=== PATIENT | female | born 1990 | race African-American/Black ===

== ENCOUNTER 2020-05-25 10:46 | Outpatient (REF) | payer OTHER, SELFPAY | END 2020-05-25 10:47 | disposition home or self-care (01) | LOC: HO.LAB 10:46 | PROVIDERS: PCP Internal Medicine; Visit Provider Internal Medicine | DX: Z20.828 Contact with and (suspected) exposure to other viral communicable diseases (principal) | CPT/HCPCS: U0003 ==

== ENCOUNTER 2020-10-17 12:16 | Outpatient (REF) | payer OTHER, SELFPAY ==
[2020-10-17 13:56] LABS: COVID-19 Test Negative (Negative)
== END 2020-10-17 12:17 | disposition home or self-care (01) ==
LOC: HO.LAB 12:16
PROVIDERS: Visit Provider Internal Medicine
DX: Z20.822 Contact with and (suspected) exposure to COVID-19 (principal)
CPT/HCPCS: 36415; 87635; C9803

== ENCOUNTER 2021-02-20 14:43 | Outpatient (REF) | payer OTHER, SELFPAY ==
[2021-02-21 05:45] LABS: CT PCR NOT DETECTED (Not Detect.); NG PCR NOT DETECTED (Not Detect.)
[2021-02-22 19:16] LABS: HPV mRNA E6/E7 rflx Not Detected (Not Detected)
== END 2021-02-20 14:44 | disposition home or self-care (01) ==
LOC: HO.LAB 14:43
PROVIDERS: PCP Internal Medicine; Visit Provider Advanced Practice Midwife
DX: Z01.419 Encounter for gynecological examination (general) (routine) without abnormal findings (principal); Z11.51 Encounter for screening for human papillomavirus (HPV); Z11.3 Encounter for screening for infections with a predominantly sexual mode of transmission; Z20.2 Contact with and (suspected) exposure to infections with a predominantly sexual mode of transmission; Z72.0 Tobacco use
CPT/HCPCS: 87491; 87591; 87624; 88142

== ENCOUNTER 2021-06-20 09:41 | Emergency (ER) | payer OTHER, SELFPAY ==
[2021-06-20 09:58] VITALS: BP 154/87; PULSE 78; RESP 19; O2SAT 99; BMI 28.3
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
[2021-06-20 14:06] LABS: Appearance Urine HAZY; Color Urine YELLOW; Glucose Urine UA NEG (NEG); Leukocyte Esterase Urine NEG (NEG); Nitrite Urine NEG (NEG); Specific Gravity - Urine 1.025 (1.005-1.025); UACC Culture Trigger NO; Urine Blood TRACE (NEG); Urine Ketones >=80 MG/DL (NEG); Urine Protein NEG (NEG-TRACE)
[2021-06-20 14:09] LABS: UPreg QC Valid YES
[2021-06-20] MEDS: metroNIDAZOLE 500 MG TABLET 2000 MG PO (14:11)
[2021-06-20] MEDS: Azithromycin 500 MG TABLET 1000 MG PO (14:11)
[2021-06-20 14:14] LABS: Squamous Epithelial Cell Urine 4+ /LPF; WBC Urine 0 /HPF (0-4)
[2021-06-20 14:15] LABS: Mucus Urine 4+ /LPF
[2021-06-20] MEDS: cefTRIAXone sodium 500 MG, Lidocaine HCl 1 % MPF 1 ML IM (14:15)
[2021-06-20 14:16] LABS: Urine Pregnancy NEGATIVE (NEGATIVE)
[2021-06-20 15:41] LABS: CT PCR NOT DETECTED (Not Detect.); NG PCR NOT DETECTED (Not Detect.)
== END 2021-06-20 15:29 | disposition home or self-care (01) ==
PROVIDERS: Physician Assistant; Emergency Provider Emergency Medicine; PCP Internal Medicine
DX: T74.21XA Adult sexual abuse, confirmed, initial encounter (principal); Y07.59 Other non-family member, perpetrator of maltreatment and neglect
CPT/HCPCS: 81001; 81025; 87480; 87491; 87510; 87591; 87660; 96372; 99283; 99284; J0696

== ENCOUNTER 2022-05-15 13:01 | Outpatient (REF) | payer OTHER, SELFPAY ==
[2022-05-15 14:46] LABS: HCG Quantitative < 2 mIU/mL
== END 2022-05-15 13:02 | disposition home or self-care (01) ==
LOC: HO.LAB 13:01
PROVIDERS: PCP Internal Medicine; Visit Provider Obstetrics & Gynecology
DX: O20.9 Hemorrhage in early pregnancy, unspecified (principal)
CPT/HCPCS: 36415; 84702

== ENCOUNTER 2022-05-20 15:15 | Outpatient (REF) | payer OTHER, SELFPAY ==
[2022-05-20 16:07] LABS: Influenza A PCR NEGATIVE (Negative); Influenza B PCR NEGATIVE (Negative); Resp Syncy Virus RNA Qual PCR POSITIVE (Negative); SARS COV2 PCR INHOUSE NEGATIVE (Negative)
== END 2022-05-20 15:16 | disposition home or self-care (01) ==
LOC: HO.LAB 15:15
PROVIDERS: PCP Internal Medicine; Visit Provider Internal Medicine
DX: Z20.822 Contact with and (suspected) exposure to COVID-19 (principal); R09.89 Other specified symptoms and signs involving the circulatory and respiratory systems
CPT/HCPCS: 0241U

== ENCOUNTER 2023-03-19 08:50 | Outpatient (AMB) | payer OTHER, SELFPAY ==
[2023-03-19 08:54] VITALS: BP 112/68; BMI 27.5
--- NOTE | 2023-03-19 08:54 | A.OFFVIS_ITS ---
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 No complaints. Last Pap/HPV was negative in 02/16 [facility] Medical History Physical exam Immunization due Surgical History No history of previous surgery Family History Mother High blood pressure High cholesterol Father No problems noted. 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[employer] - [employer] Current occupational exposures/hazards: No Female Reproductive History Menstrual Age of Menarche: 13 Duration of menses: 6-7 days Date of last menstrual period: 02/16/23 control method: none Total pregnancies: 1 Full term: 1 Number of Living Children: 1 Date of last pap smear: 02/21/21 (negative) Review of Systems Const All systems reviewed & are unremarkable except as noted in HPI and below Card Reports as per HPI Resp Reports as per HPI GI Reports as per HPI and Reports no additional complaints Reports as per HPI Physical Exam Vital Signs: Last Vital Signs BP 112/68 03/19/23 08:54 BMI result Body Mass Index 27.5 Const General: cooperative, healthy appearing and comfortable Chest Chest palpation & inspection: normal inspection of the chest and normal palpati on of entire chest wall Breast/axilla inspection: normal inspection of the breasts and normal inspection of the axillae Breast/axilla palpation: normal palpation of the breasts, normal palpation of the axillae and no axillary lymphadenopathy Resp Effort & Inspection: normal respiratory effort Auscultation: clear to auscultation bilaterally Percussion: percussion normal Cardio Palpation: normal PMI Rate: regular rate Rhythm: regular rhythm Heart sounds: no murmurs and no rubs Peripheral pulses: Peripheral pulses 2+ throughout GI Inspection: Yes normal to inspection Palpation (GI): Soft to palpation, nontender, no guarding, not rigid and No hepatosplenomegaly present Percussion: Yes normal to percussion Auscultation: normal bowel sounds Rectal Exam - Female: deferred General: Yes bladder normal to palpation External Female Exam: No lesion Speculum Exam - Vagina: normal appearance of the vagina, normal palpation, normal vaginal discharge and not erythematous Speculum Exam - Cervix: normal appearance of the cervix and normal palpation Bimanual exam- vagina & uterus: normal bimanual exam, normal palpation, uterine size normal, bladder normal to palpation, consistency normal and normal palpation Bimanual Exam- Adnexa, other: normal adnexae, no masses and no tenderness Assessment & Plan Assessment & Plan (1) Encounter for well woman exam: Code(s): Z01.419 - Encounter for gynecological examination (general) (routine) without abnormal findings Plan: Cotesting not indicated this year. Counseled the patient about the recommended dietary allowance of 1000 mg of Calcium & 600 IU of vitamin D. The patient was instructed to perform monthly self-breast exams and to schedule an annual exam in a year; All questions answered and the patient verbalized understanding. Instructed the patient to schedule annual exam in a year Coding Level of Care Code Est Pt Prev Care 18-39y(62103) Diagnoses Encounter for well woman exam Z01.419
== END 2023-03-19 09:15 | disposition home or self-care (01) ==
LOC: HO.HWS 08:50
PROVIDERS: PCP Internal Medicine; Visit Provider Obstetrics & Gynecology
DX: Z01.419 Encounter for gynecological examination (general) (routine) without abnormal findings (principal)
CPT/HCPCS: 99395

== ENCOUNTER → 2023-03-19 08:50 | Outpatient (BNVA) | payer OTHER, SELFPAY | PROVIDERS: PCP Internal Medicine; Visit Provider Obstetrics & Gynecology | DX: Z01.419 Encounter for gynecological examination (general) (routine) without abnormal findings (principal) | CPT/HCPCS: 99395 ==

== ENCOUNTER 2023-04-07 09:48 | Outpatient (REF) | payer OTHER, SELFPAY | END 2023-04-07 09:49 | disposition home or self-care (01) | LOC: HO.LAB 09:48 | PROVIDERS: PCP Internal Medicine; Visit Provider Internal Medicine | DX: Z13.220 Encounter for screening for lipoid disorders (principal); Z13.29 Encounter for screening for other suspected endocrine disorder | CPT/HCPCS: 36415; 80053; 80061; 84443 ==

== ENCOUNTER 2023-07-23 13:32 | Outpatient (AMB) | payer OTHER, SELFPAY ==
--- NOTE | 2023-07-23 13:37 | A.OFFPC_ITS ---
Vital Signs 07/23/23 13:38 Height 5 ft Weight 147 lb 8 oz BMI 28.8 BP 104/74 Blood Pressure Location Lt brachial Position Sitting Pulse 72 Pulse Source Pulse Oximeter Pulse Oximetry (%) 100 Oxygen Delivery Method Room Air Intake Visit Reasons: pe Intake Note: Patient is here today for a physical. 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 Required: No Accompanied by: Self / Same As Patient Is last menstrual period known: Yes Last menstrual period: 07/09/23 Allergies No Known Allergies [No Known Allergies*] Allergy (Verified 07/23/23 13:51) Medication List - Last Reconciled 07/23/23 by Mikhail Guadarrama PA-C No Known Home Meds Tobacco use date assessed: 07/23/23 Dental Screening Dental Screen Date: 07/23/23 Did you have a dental visit in the last 12 months?: Yes Did you have a dental problem in the last 6 months where you did not have access to dental care?: No Was dental information given to patient?: Patient has dentist HPI pe HPI Details Patient is a 33 year female here today annual physical. Patient has a past history use disorder. Concern--> report having nasal congestion and eye pain over the 2 months. Has been trying Benadryl and nasal spray without much relief of her sinus and nasal congestion. She reports having hard time breathing at night while lying down because of her nasal congestion. .. Gynecology: Patient is followed by [facility] loan originator assistant and is up-to-date with her Pap Labs reviewed with patient and noted slightly elevated liver enzymes and March 2023 vaccine: Needs flu shot though declines today, up-to-date with tetanus and COVID vaccines Laboratory Tests 04/07/23 09:59 AST 51 H ALT 165 H Cholesterol 128 TSH 0.79 PFSH Medical History Physical exam Immunization due Surgical History No history of previous surgery Family History (Updated 07/23/23 @ 13:55 by Mikhail Guadarrama PA-C) Mother High blood pressure High cholesterol Father No problems noted. 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 1. Little interest or pleasure in doing things: not at all 2. Feeling down, depressed, or hopeless: not at all 3. Trouble falling or staying asleep, or sleeping too much: not at all 4. Feeling tired or having little energy: not at all 5. Poor appetite or overeating: not at all 6. Feeling bad about yourself - or that you are a failure or have let yourself or your family down: not at all 7. Trouble concentrating on things, such as reading the newspaper or watching television: not at all 8. Moving or speaking so slowly that other people could have noticed. Or the opposite - being so fidgety or restless that you have been moving around a lot more than usual: not at all 9. Thoughts that you would be better off or of hurting yourself in some way: not at all Total score: 0 Depression Screening Interpretation: Negative Depression Screening Done: Yes 24397 - PHQ-9 Billing: Yes Source: Developed by Drs. Daniel Sung, Rachael Calderon, Cameron Gunter and colleagues, with an educational moose from [employer]. Thrive Questionnaire Date Thrive assessed: 08/26/21 I am a: Patient What is your living situation today?: I have a steady place to live Within the past 12 months, did the food you bought not last and you didn't have the money to get more?: Never true Within the past 12 months, did you worry whether your food would run out before you got money to buy more?: Never true Do you have trouble paying for medicines?: No Do you have trouble getting transportation to medical appointments?: No Do you have trouble paying your heating and electricity bill?: No Do you have trouble taking care of your child, family member or friend?: No Do you have trouble with day-to-day activities such as bathing, preparing meals, shopping, managing finances, etc.?: No Are you currently unemployed and looking for a job?: No Are you interested in more education?: No Please select the resources that you would like help with: None Currently or been in a relationship where the following occur: no concerns reported THRIVE Score: 0 AUDIT C Alcohol Use Questionnaire (AUDIT-C) 1. How often do you have a drink containing alcohol?: Monthly or less 2. How many drinks containing alcohol do you have on a typical day when you are drinking?: 1 or 2 3. How often do you have six or more drinks on one occasion?: Never Total Score: 1 MAKENZIE-7 AMB Questionnaire MAKENZIE-7 Date MAKENZIE - 7 assessed: 07/23/23 Feeling nervous, anxious, or on edge: 0 = Not at all Not being able to stop or control worryin = Not at all Worrying too much about different things: 0 = Not at all Trouble relaxin = Not at all Being so restless that it is hard to sit still: 0 = Not at all Becoming easily annoyed or irritable: 0 = Not at all Feeling afraid as if something awful might happen: 0 = Not at all Total MAKENZIE-7 score (0-4 normal; 5-9 mild; 10-14 moderate; 15-21 severe): 0 Source: Developed by Drs. Daniel Sung, Rachael Calderon, Cameron Gunter and colleagues, with an educational moose from [employer]. MAKENZIE-7 Assessment Billing MAKENZIE-7 Assessment Tool: MAKENZIE-7 Assessment [id number] Review of Systems Const Denies body aches, Denies chills, Denies excessive sweating, Denies fatigue, Denies fever(s) and Denies headache(s) Eyes Denies blurry vision ENT Denies dysphagia, Denies vertigo, Denies dizziness, Denies headache(s), Denies hearing loss and Denies tinnitus Card Denies chest pain, Denies chest pain with activity, Denies syncope, Denies irregular heart rhythm and Denies dyspnea Resp Denies chest congestion, Denies cough, Denies hemoptysis, Denies dyspnea and Denies wheezing GI Denies abdominal pain, Denies melena, Denies hematochezia, Denies coffee ground emesis, Denies dysphagia, Denies diarrhea, Denies nausea and Denies vomiting Denies urinary frequency, Denies dysuria, Denies urinary hesitancy and Denies urinary urgency Musc Denies arthralgias, Denies limited range of motion, Denies muscle cramps and Denies muscle weakness Skin/Breast Denies rash and Denies skin ulcer Neuro Denies Abnormal speech present, Denies confusion, Denies vertigo, Denies dizziness, Denies syncope, Denies headache(s), Denies memory loss and Denies seizure-like activity Psych Denies anxiety, Denies confusion, Denies depression, Denies memory loss, Denies panic attacks and Denies paranoia Endo Denies excessive sweating, Denies fatigue, Denies flushing, Denies polydipsia and Denies polyuria Aller/Immun Denies wheezing Physical exam (Primary Care) Vital Signs: Last Vital Signs Pulse 72 07/23/23 13:38 BP 104/74 07/23/23 13:38 Pulse Ox 100 07/23/23 13:38 Oxygen Delivery Method Room Air 07/23/23 13:38 BMI result Body Mass Index 28.8 Tobacco/Smoking Status: Tobacco use Status Tobacco use date assessed 07/23/23 07/23/23 13:43 Patient Tobacco Use Status Former Tobacco user 07/23/23 13:43 Tobacco use type Cigarette 07/23/23 13:43 e-Cigarette/Vaping Use Never Used 07/23/23 13:43 PHQ-9: PHQ-9 Score PHQ-9: Total score 0 07/23/23 13:43 Depression Screening Interpretation: Negative Thrive Assessment: Date of Thrive Assessment Date Thrive assessed 08/26/21 07/23/23 13:43 Currently or been in a relationship where the following occur: no concerns reported Const General: cooperative, comfortable, no acute distress, alert and awake; No confusion Orientation/consciousness: oriented to person, oriented to place, patient oriented x3 and No confusion HENMT Head: Yes normocephalic Ears: external ears normal and TM's normal bilaterally Face and sinus: No sinus tenderness Mouth: Normal oral and palatal mucosa present and tongue normal Teeth and gingiva: dentition normal and gingiva normal Throat: Yes posterior oropharynx normal, Yes tonsils normal and Yes uvula midline Eyes Conjunctivae: conjunctivae normal Sclerae: sclerae normal Pupils: Equal, round and reactive pupils present EOM: EOMs intact bilaterally Direct Ophthalmoscopy: No no photophobia Neck Neck: Yes no lymphadenopathy, No tender and Yes no JVD Thyroid: Thyroid normal Carotids: no bruits Chest Chest palpation & inspection: no tenderness Resp Effort & Inspection: normal respiratory effort, no audible wheezes, not labored and no stridor Auscultation: no crackles, no rales, no rhonchi and no wheezes Cardio Jugular venous distension: no JVD Rate: regular rate, not bradycardic and not tachycardic Rhythm: regular rhythm Bruits: no carotid bruits Peripheral pulses: Peripheral pulses 2+ throughout GI Inspection: Yes normal to inspection, No abdominal wall ecchymosis and No visible herniation Palpation (GI): Soft to palpation, nontender, no guarding, not rigid and No he patosplenomegaly present Auscultation: normoactive bowel sounds General: Yes no CVA tenderness Back/Spine/Pelvis Back: no CVA tenderness and No back tenderness Cervical Spine: cervical ROM normal Thoracic/Lumbar Spine: thoracic and lumbar spine normal to inspection, straight leg raise negative bilaterally, No thoraco-lumbar ROM limited and No lumbar spinal tenderness Skin Lesions: no lesions Rashes: no rashes Wounds: no wounds Neuro General: oriented to person, oriented to place, patient oriented x3, CN's II-XI intact bilaterally and No confusion Cranial nerves: Yes Equal, round and reactive pupils present and Yes Normal accommodation reflex present Cognition (Neuro): normal cognition Speech: No Abnormal speech present Gait exam (Neuro): Normal gait present Motor exam (neuro): 5/5 motor strength present throughout Extrem Right upper extremity: full ROM; no cyanosis Left upper extremity: full ROM; no cyanosis Right lower extremity: no edema Left lower extremity: no edema Psych Appearance: grossly normal Mental Status: mental status grossly normal Affect: normal affect Attitude: cooperative Thought process: Normal thought process present Assessment and Plan Assessment & Plan (1) Physical exam: Code(s): Z00.00 - Encounter for general adult medical examination without abnormal findings (2) Elevated liver enzymes: Code(s): R74.8 - Abnormal levels of other serum enzymes Plan: Noted elevated liver enzymes on most recent labs. She denies using much Tylenol, drinking alcohol. Not obese. Will recheck liver panel (3) Sinus infection: Code(s): J32.9 - Chronic sinusitis, unspecified Qualifiers: Sinusitis location: frontal Chronicity: subacute Qualified Code(s): J01.10 - Acute frontal sinusitis, unspecified Plan: She reports a 2 month history of nasal congestion and sinus pain. Also having pain in her eyes. Will supply patient with an antibiotic and nasal spray as she has symptoms concerning for sinus infection Orders: Orders Liver Panel Today R74.8 - Abnormal levels of other serum enzymes Medications: New amoxicillin-pot clavulanate 875-125 mg 1 tab PO BID 7 days 14 tabs 0RF J01.10 - Acute frontal sinusitis, unspecified prednisone Take 3 tablets x2 days, 2 tablets x2 days, 1 tablet x2 days 10 mg PO DIRECTED 6 days 12 tabs 0RF J01.10 - Acute frontal sinusitis, unspecified fluticasone propionate 50 mcg/actuation administer into each nostril 1 spray intranasal BID 30 days 16 grams 0RF J01.10 - Acute frontal sinusitis, unspecified Coding Level of Care Code Est Pt Prev Care 18-39y(93282) Diagnoses Physical exam Z00.00 Elevated liver enzymes R74.8 Subacute frontal sinusitis J01.10 Sinusitis location: frontal Chronicity: subacute Additional Codes MAKENZIE-7 Assessment Billing - MAKENZIE-7 Assessment Tool: MAKENZIE-7 Assessment 23136 ([id number])
[2023-07-23 13:38] VITALS: BP 104/74; PULSE 72; O2SAT 100; BMI 28.8
== END 2023-07-23 14:32 | disposition home or self-care (01) ==
PROVIDERS: PCP Internal Medicine; Visit Provider Physician Assistant
DX: Z00.00 Encounter for general adult medical examination without abnormal findings (principal); R74.8 Abnormal levels of other serum enzymes; J01.10 Acute frontal sinusitis, unspecified; F17.210 Nicotine dependence, cigarettes, uncomplicated
CPT/HCPCS: 99395

== ENCOUNTER 2024-03-08 08:47 | Outpatient (AMB) | payer OTHER, SELFPAY ==
--- NOTE | 2024-03-08 09:13 | AM.OFFVISNUR ---
Intake Visit Reasons: TB implant Allergies No Known Allergies [No Known Allergies*] Allergy (Verified 07/23/23 13:51) Office Meds tuberculin PPD 5 tub. unit/0.1 mL intradermal injection solution Performing Provider: Pily Hernandez MD [facility] Administered by: Kristine Sandoval RN on 03/08/24 09:13 Dose Route Admin Location Dispensed Lot Number Expiration Date NDC Stenciling Machine Tender 0.1 mL intradermal left forarm 0.1 mL [id number] 11/25/26 10212-978-20 [employer] Assessment & Plan Assessment & Plan Orders: Orders AMB PPD Planted Today Z11.1 - Encounter for screening for respiratory tuberculosis Medications: New tuberculin PPD 0.1 mL intradermal ONCE 0.1 mL 0RF Z11.1 - Encounter for screening for respiratory tuberculosis
== END 2024-03-08 09:16 | disposition home or self-care (01) ==
PROVIDERS: PCP Internal Medicine; Visit Provider Internal Medicine
DX: Z11.1 Encounter for screening for respiratory tuberculosis (principal)
CPT/HCPCS: 86580

== ENCOUNTER 2024-03-21 15:41 | Outpatient (AMB) | payer OTHER, SELFPAY ==
[2024-03-21 15:48] VITALS: BP 120/74; BMI 27.3
--- NOTE | 2024-03-21 15:48 | MHC.OFFVIS ---
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 No complaints. Last Pap/HPV was negative in 02/16 [facility] Medical History Physical exam Immunization due Surgical History No history of previous surgery Family History Mother High blood pressure High cholesterol Father No problems noted. 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 - [employer] Current occupational exposures/hazards: No Cognitive needs: No Hearing needs: No Vision needs: No Female Reproductive History Menstrual Age of Menarche: 13 Date of last menstrual period: 02/25/24 Total pregnancies: 1 Full term: 1 Number of Living Children: 1 Date of last pap smear: 02/21/21 Review of Systems Const All systems reviewed & are unremarkable except as noted in HPI and below Card Reports as per HPI Resp Reports as per HPI GI Reports as per HPI and Reports no additional complaints Reports as per HPI Physical Exam Const General: cooperative, healthy appearing and comfortable Chest Chest palpation & inspection: normal inspection of the chest and normal palpation of entire chest wall Breast/axilla inspection: normal inspection of the breasts and normal inspection of the axillae Breast/axilla palpation: normal palpation of the breasts, normal palpation of the axillae and no axillary lymphadenopathy Resp Effort & Inspection: normal respiratory effort Auscultation: clear to auscultation bilaterally Percussion: percussion normal Cardio Palpation: normal PMI Rate: regular rate Rhythm: regular rhythm Heart sounds: no murmurs and no rubs Peripheral pulses: Peripheral pulses 2+ throughout GI Inspection: Yes normal to inspection Palpation (GI): Soft to palpation, nontender, no guarding, not rigid and No hepatosplenomegaly present Percussion: Yes normal to percussion Auscultation: normal bowel sounds Rectal Exam - Female: deferred General: Yes bladder normal to palpation External Female Exam: No lesion Speculum Exam - Vagina: normal appearance of the vagina, normal palpation, normal vaginal discharge and not erythematous Speculum Exam - Cervix: normal appearance of the cervix and normal palpation Bimanual exam- vagina & uterus: normal bimanual exam, normal palpation, uterine size normal, bladder normal to palpation, consistency normal and normal palpation Bimanual Exam- Adnexa, other: normal adnexae, no masses and no tenderness Assessment & Plan Assessment & Plan (1) Encounter for well woman exam: Code(s): Z01.419 - Encounter for gynecological examination (general) (routine) without abnormal findings Category: Medical Plan: Cotesting not indicated this year. Counseled the patient about the recommended dietary allowance of 1000 mg of Calcium & 600 IU of vitamin D. The patient was instructed to perform monthly self-breast exams and to schedule an annual exam in a year; All questions answered and the patient verbalized understanding. Instructed the patient to schedule annual exam in a year Coding Level of Care Code Est Pt Prev Care 18-39y(54980) Diagnoses Encounter for well woman exam Z01.419
== END 2024-03-21 16:01 | disposition home or self-care (01) ==
PROVIDERS: PCP Internal Medicine; Visit Provider Obstetrics & Gynecology
DX: Z01.419 Encounter for gynecological examination (general) (routine) without abnormal findings (principal)
CPT/HCPCS: 99395

== ENCOUNTER → 2024-03-21 15:41 | Outpatient (BNVA) | payer OTHER, SELFPAY | PROVIDERS: PCP Internal Medicine; Visit Provider Obstetrics & Gynecology | DX: Z01.419 Encounter for gynecological examination (general) (routine) without abnormal findings (principal) | CPT/HCPCS: 99395 ==

== ENCOUNTER 2024-09-01 15:14 | Outpatient (AMB) | payer OTHER, SELFPAY ==
--- NOTE | 2024-09-01 15:17 | A.OFFPC_ITS ---
Vital Signs 09/01/24 15:19 Height 5 ft Weight 152 lb BMI 29.7 BP 110/72 Blood Pressure Location Lt brachial Position Sitting Pulse 75 Pulse Source Pulse Oximeter Pulse Oximetry (%) 95 Oxygen Delivery Method Room Air Intake Visit Reasons: Annual Exam Intake Note: Patient here for an annual physical exam Blood Bank Technologist Required: No Accompanied by: Self / Same As Patient Allergies No Known Allergies [No Known Allergies*] Allergy (Verified 09/01/24 15:25) Medication List - Last Reconciled 09/01/24 by Mikhail Guadarrama PA-C Tobacco use date assessed: 09/01/24 Dental Screening Dental Screen Date: 09/01/24 Did you have a dental visit in the last 12 months?: Yes Did you have a dental problem in the last 6 months where you did not have access to dental care?: No Was dental information given to patient?: Patient has dentist HPI Annual Exam HPI Details Patient is a 34 year female here today annual physical. . Concern--> report having nasal congestion and eye pain over the 2 months. Has been trying Benadryl and nasal spray without much relief of her sinus and nasal congestion. She reports having hard time breathing at night while lying down because of her nasal congestion. She does admit to having a CT that she may be allergic to thus will do allergy testing to confirm. She also reports she has been suffering with acne for quite some time and will like a treatment for this. .. Gynecology: Patient is followed by [facility] horse [facility] and is up-to-date with her Pap vaccine: up-to-date with tetanus and COVID vaccines [facility] Medical History Physical exam Immunization due Surgical History No history of previous surgery Family History Mother High blood pressure High cholesterol Father No problems noted. Brother Heart attack, Onset Age: 31 High cholesterol High blood pressure Social History Housing: Apartment Alcohol intake: current Patient Tobacco Use Status: Former Tobacco user Tobacco use type: Cigarette e-Cigarette/Vaping Use: Never Used Second Hand Smoke Exposure: No service: No Current occupational status: employed Current occupation: [employer] Current occupational exposures/hazards: No Cognitive needs: No Hearing needs: No Vision needs: No Female Reproductive History Menstrual Age of Menarche: 13 Questionnaire PHQ-9 Over the last 2 weeks, how often have you been bothered by any of the following problems? 1. Little interest or pleasure in doing things: not at all 2. Feeling down, depressed, or hopeless: not at all 3. Trouble falling or staying asleep, or sleeping too much: not at all 4. Feeling tired or having little energy: not at all 5. Poor appetite or overeating: not at all 6. Feeling bad about yourself - or that you are a failure or have let yourself or your family down: not at all 7. Trouble concentrating on things, such as reading the newspaper or watching television: not at all 8. Moving or speaking so slowly that other people could have noticed. Or the opposite - being so fidgety or restless that you have been moving around a lot more than usual: not at all 9. Thoughts that you would be better off or of hurting yourself in some way: not at all Total score: 0 Depression Screening Interpretation: Negative Depression Screening Done: Yes 98593 - PHQ-9 Billing: Yes Source: Developed by Drs. Daniel Sung, Rachael Calderon, Cameron Gunter and colleagues, with an educational moose from [employer]. Thrive Questionnaire Date Thrive assessed: 08/30/24 I am a: Patient What is your living situation today?: I have a steady place to live Within the past 12 months, did the food you bought not last and you didn't have the money to get more?: Never true Within the past 12 months, did you worry whether your food would run out before you got money to buy more?: Never true Do you have trouble paying for medicines?: No Do you have trouble getting transportation to medical appointments?: No Do you have trouble paying your heating and electricity bill?: No Do you have trouble taking care of your child, family member or friend?: No Do you have trouble with day-to-day activities such as bathing, preparing meals, shopping, managing finances, etc.?: No Are you currently unemployed and looking for a job?: No Are you interested in more education?: No Please select the resources that you would like help with: None Currently or been in a relationship where the following occur: No concerns reported and I choose not to answer THRIVE Score: 0 AUDIT C Alcohol Use Questionnaire (AUDIT-C) 1. How often do you have a drink containing alcohol?: Never Total Score: 0 MAKENZIE-7 AMB Questionnaire MAKENZIE-7 Date MAKENZIE - 7 assessed: 09/01/24 Feeling nervous, anxious, or on edge: 0 = Not at all Not being able to stop or control worryin = Not at all Worrying too much about different things: 0 = Not at all Trouble relaxin = Not at all Being so restless that it is hard to sit still: 0 = Not at all Becoming easily annoyed or irritable: 0 = Not at all Feeling afraid as if something awful might happen: 0 = Not at all Total MAKENZIE-7 score (0-4 normal; 5-9 mild; 10-14 moderate; 15-21 severe): 0 Source: Developed by Drs. Daniel Sung, Rachael Calderon, Cameron Gunter and colleagues, with an educational moose from [employer]. Review of Systems Const Denies body aches, Denies chills, Denies excessive sweating, Denies fatigue, Denies fever(s) and Denies headache(s) Eyes Denies blurry vision ENT Denies dysphagia, Denies vertigo, Denies dizziness, Denies headache(s), Denies hearing loss, Reports nasal congestion, Reports nasal discharge and Denies tinnitus Card Denies chest pain, Denies chest pain with activity, Denies syncope, Denies irregular heart rhythm and Denies dyspnea Resp Denies chest congestion, Denies cough, Denies hemoptysis, Denies dyspnea and Denies wheezing GI Denies abdominal pain, Denies melena, Denies hematochezia, Denies coffee ground emesis, Denies dysphagia, Denies diarrhea, Denies nausea and Denies vomiting Denies urinary frequency, Denies dysuria, Denies urinary hesitancy and Denies urinary urgency Musc Denies arthralgias, Denies limited range of motion, Denies muscle cramps and Denies muscle weakness Skin/Breast Denies rash and Denies skin ulcer Neuro Denies Abnormal speech present, Denies confusion, Denies vertigo, Denies di zziness, Denies syncope, Denies headache(s), Denies memory loss and Denies seizure-like activity Psych Denies anxiety, Denies confusion, Denies depression, Denies memory loss, Denies panic attacks and Denies paranoia Endo Denies excessive sweating, Denies fatigue, Denies flushing, Denies polydipsia and Denies polyuria Aller/Immun Denies wheezing Physical exam (Primary Care) Vital Signs: Last Vital Signs Pulse 75 09/01/24 15:19 BP 110/72 09/01/24 15:19 Pulse Ox 95 09/01/24 15:19 Oxygen Delivery Method Room Air 09/01/24 15:19 BMI result Body Mass Index 29.7 Tobacco/Smoking Status: Tobacco use Status Tobacco use date assessed 09/01/24 09/01/24 15:25 Patient Tobacco Use Status Former Tobacco user 09/01/24 15:18 Tobacco use type Cigarette 09/01/24 15:18 e-Cigarette/Vaping Use Never Used 09/01/24 15:18 PHQ-9: PHQ-9 Score PHQ-9: Total score 0 09/01/24 15:28 Depression Screening Interpretation: Negative Thrive Assessment: Date of Thrive Assessment Date Thrive assessed 08/30/24 09/01/24 15:18 Currently or been in a relationship where the following occur: No concerns reported and I choose not to answer Const General: cooperative, comfortable, no acute distress, alert and awake; No confusion Orientation/consciousness: oriented to person, oriented to place, patient oriented x3 and No confusion HENMT Head: Yes normocephalic Ears: external ears normal and TM's normal bilaterally Face and sinus: No sinus tenderness Mouth: Normal oral and palatal mucosa present and tongue normal Teeth and gingiva: dentition normal and gingiva normal Throat: Yes posterior oropharynx normal, Yes tonsils normal and Yes uvula midline Eyes Conjunctivae: conjunctivae normal Sclerae: sclerae normal Pupils: Equal, round and reactive pupils present EOM: EOMs intact bilaterally Direct Ophthalmoscopy: No no photophobia Neck Neck: Yes no lymphadenopathy, No tender and Yes no JVD Thyroid: Thyroid normal Carotids: no bruits Chest Chest palpation & inspection: no tenderness Resp Effort & Inspection: normal respiratory effort, no audible wheezes, not labored and no stridor Auscultation: no crackles, no rales, no rhonchi and no wheezes Cardio Jugular venous distension: no JVD Rate: regular rate, not bradycardic and not tachycardic Rhythm: regular rhythm Bruits: no carotid bruits Peripheral pulses: Peripheral pulses 2+ throughout GI Inspection: Yes normal to inspection, No abdominal wall ecchymosis and No visible herniation Palpation (GI): Soft to palpation, nontender, no guarding, not rigid and No hepatosplenomegaly present Auscultation: normoactive bowel sounds General: Yes no CVA tenderness Back/Spine/Pelvis Back: no CVA tenderness and No back tenderness Cervical Spine: cervical ROM normal Thoracic/Lumbar Spine: thoracic and lumbar spine normal to inspection, straight leg raise negative bilaterally, No thoraco-lumbar ROM limited and No lumbar spinal tenderness Skin Lesions: no lesions Rashes: no rashes Wounds: no wounds Neuro General: oriented to person, oriented to place, patient oriented x3, CN's II-XI intact bilaterally and No confusion Cranial nerves: Yes Equal, round and reactive pupils present and Yes Normal accommodation reflex present Cognition (Neuro): normal cognition Speech: No Abnormal speech present Gait exam (Neuro): Normal gait present Motor exam (neuro): 5/5 motor strength present throughout Extrem Right upper extremity: full ROM; no cyanosis Left upper extremity: full ROM; no cyanosis Right lower extremity: no edema Left lower extremity: no edema Psych Appearance: grossly normal Mental Status: mental status grossly normal Affect: normal affect Attitude: cooperative Thought process: Normal thought process present Coding Level of Care Code Est Pt Prev Care 18-39y(59851) Diagnoses Annual physical exam Z00.00 Allergic rhinitis, unspecified seasonality, unspecified trigger J30.9 Allergic rhinitis seasonality: unspecified Allergic rhinitis trigger: unspecified Acne vulgaris L70.0 Abdominal discomfort R10.9 Additional Codes PHQ-9 - 54355 - PHQ-9 Billing: Yes ([id number]) Assessment & Plan Assessment & Plan (1) Annual physical exam: Code(s): Z00.00 - Encounter for general adult medical examination without abnormal findings Category: Medical Plan: As per HPI (2) Allergic rhinitis: Code(s): J30.9 - Allergic rhinitis, unspecified Category: Medical Qualifiers: Allergic rhinitis seasonality: unspecified Allergic rhinitis trigger: unspecified Qualified Code(s): J30.9 - Allergic rhinitis, unspecified Plan: Patient continues with chronic nasal congestion and allergy like symptoms. Will supply patient with montelukast to help with her allergy symptoms. Will also advised on using Flonase nasal spray. (3) Acne vulgaris: Code(s): L70.0 - Acne vulgaris Category: Medical Plan: Patient has been suffering with acne for many years. She is willing to try a topical acne treatment. Will send in benzoyl peroxide cleanser. (4) Abdominal discomfort: Code(s): R10.9 - Unspecified abdominal pain Category: Medical Plan: Patient reports some abdominal distention and bloating. She reports she has bad gut health. She admits to dietary indiscretion. Will start up at daily fiber supplementation to help her with her GI health. We did discuss possibly getting a probiotic to also help out. Orders: Orders Complete Blood Count no Diff 09/01/24 Z13.1 - Encounter for screening for diabetes mellitus US abdomen complete 09/01/24 R74.8 - Abnormal levels of other serum enzymes Resp Allergy Profile Region I 09/01/24 J30.9 - Allergic rhinitis, unspecified, R05.9 - Cough, unspecified Hepatitis B,C Profile 09/01/24 R74.01 - Elevation of levels of liver transaminase levels, Z11.3 - Encounter for screening for infections with a predominantly sexual mode of transmission Syphilis Screen 09/01/24 Z11.3 - Encounter for screening for infections with a predominantly sexual mode of transmission Comprehensive [place]. Panel Fast 09/01/24 Z13.1 - Encounter for screening for diabetes mellitus Vitamin D 25-OH Total 09/01/24 R74.8 - Abnormal levels of other serum enzymes UA CC w/rflx Micro + Cult 09/01/24 R30.0 - Dysuria CT NG by PCR 09/01/24 Z20.2 - Contact with and (suspected) exposure to infections with a predominantly sexual mode of transmission HIV Ab/Ag 09/01/24 Z11.3 - Encounter for screening for infections with a predominantly sexual mode of transmission Medications: New montelukast 10 mg PO DAILY 90 tabs 0RF 90 days J30.9 - Allergic rhinitis, unspecified fluticasone propionate 50 mcg/actuation administer into each nostril 1 spray intranasal BID 16 grams 1RF 30 days J30.9 - Allergic rhinitis, unspecified benzoyl peroxide 5% 1 appl topical Q OTHER DAY 30 days 227 grams 0RF L70.0 - Acne vulgaris
[2024-09-01 15:19] VITALS: BP 110/72; PULSE 75; O2SAT 95; BMI 29.7
--- OUTSIDE RECORDS SUMMARY | 2024-09-01 18:44 | XMS_ITS | Encounter Summary ---
Author Organization [facility] Address [address] [place] [id number] Phone Care Team Providers Care Quantitative Strategy Analyst Name Role Phone Daniel Deleon Primary Care Provider [phone] Encounter Details Date Type Department Care Team (Late st Contact Info) Description 02/12/2017 Conversion Encounter [facility] [address] [place] [address] Social History Tobacco Use Types Packs/Day Years Used Date Smoking Tobacco: Never Assessed Comments Unknown Sex and Gender Information Value Date Recorded Sex Assigned at Not on file Legal Sex Female 4:43 PM EDT Gender Identity Not on file Sexual Orientation Not on file documented as of this encounter Plan of Treatment Not on file documented as of this encounter Visit Diagnoses Not on filedocumented in this encounter Care Teams Quantitative Strategy Analyst Relationship Specialty Start Date End Date Daneil Deleon [address] [place] [address] PCP - General 02/06/17 documented as of this encounter
--- OUTSIDE RECORDS SUMMARY | 2024-09-01 18:44 | XMS_ITS | Clinical Summary ---
Author Organization [employer] Address [address] [facility] [address] [place] [address] Care Team Providers Care Weaver [place] Name Role Phone Unavailable Primary Care Provider Unavailabl e Social History Tobacco Use Types Packs/Day Years Used Date Smoking Tobacco: Never Assessed Comments Unknown Sex and Gender Information Value Date Recorded Sex Assigned at Female 04/28/2022 10:37 AM EDT Legal Sex Female 10:37 AM EDT Gender Identity Female 05/01/2023 3:23 PM EDT Sexual Orientation Straight 05/01/2023 3: 23 PM EDT Plan of Treatment Health Maintenance Due Date Last Done Comments Depression Screening 1991 HIV Screening 1991 SDOH Screening 1991 Alcohol/Substance Use Screening 2003 Tobacco Screening 2003 Family Planning (PISQ) 2006 HPV Vaccines (2 - 3-dose series) 05/06/2007 04/08/2007 Hepatitis C Screening 2009 Pap Smear 2012 Cervical Cancer Screening 2021 HPV/Cotest 2021 COVID-19 Vaccine ( season) 2024 11/27/2021, 05/15/2021, 04/24/2021 Influenza Vaccine (#1) 2024 9, 04/14/2018, 04/05/2017, Additional history exists DTaP/Tdap/Td Vaccines (7 - Td or Tdap) 04/30/2026 04/30/2016, 08/29/2002, 07/26/1995, Additional history exists Zoster Vaccines (1 of 2) 2041 RSV Patients and Patients Aged 60 years or older (1 - 1-dose 75+ series) 2066 HIB Vaccines Completed 08/28/1992, 01/1992, 1991, Additional history exists IPV Vaccines Completed 07/26/1995, 10/28, 1991, Additional history exists Hepatitis B Vaccines Completed 11/28/2002, 08/29/2002, 05/13/2002 Meningococcal Vaccine Completed 04/08/2007 Hepatitis A Vaccines Aged Out No long er eligible based on patient's age to complete this topic Pneumococcal Vaccine: Pediatrics (0 to 5 Years) and At-Risk Patients (6 to 49) Years) Aged Out No longer eligible based on patient's age to complete this topic RSV under 20 months Aged Out No longe r eligible based on patient's age to complete this topic Rotavirus Vaccines Aged Out No longer eligible based on patient's age to complete this topic Insurance [facility]
--- OUTSIDE RECORDS SUMMARY | 2024-09-01 18:44 | XMS_ITS | Encounter Summary ---
Author Organization [facility] Address [address] [place] [id number] Phone Care Team Providers Care Cadd Instructor Name Role Phone Daniel Deleon Primary Care Provider [phone] Encounter Details Date Type Department Care Team (Late st Contact Info) Description 07/05/2012 Documentation [facility] [place] [facility] [address] [place] [address] Family Medicine, Physician [address], [place] [id number] Social History Tobacco Use Types Packs/Day Years [...] on filedocumented in this encounter Care Teams Cadd Instructor Relationship Specialty Start Date End Date Daniel Deleon [address] [place] [address] PCP - General 02/06/17 documented as of this encounter
--- OUTSIDE RECORDS SUMMARY | 2024-09-01 18:44 | XMS_ITS | Clinical Summary ---
Author Organization [facility] Address [address] [place] [id number] Phone Care Team Providers Care Sidehand Name Role Phone Daniel Deleon Primary Care Provider [phone] Immunizations Immunization Administration Dates Next Due DTP 07/26/1995, 4,1991,08/04,1991 HPV, Quadrivalent 04/08/2007 Hep B, ped/adol 11/28/2002,08/29/2002,05/13/2002 Hib (HbOC) 08/28/1992, 2,1991,06/27 IPV 07/26/1995, 4,1991,06/27 MMR 03/07/1996,08/28/1992 Meningococcal Conj (Menactra) MCV4P 04/08/2007 Td (adult) (MBL), 2 Lf tetan us toxoid, PF, adsorbed 08/29/2002 Family History Relation Name Status Comments Brother Alive Brother: Alive and well Father Alive Father: Alive a nd well Mother Alive Mother: Alive a nd well Other Family history of Diabetes mellitus, Family history of Elevated cholesterol, Family history of Sudden /NE under age 55 Sister Alive Sister: Alive a nd well Social History Tobacco Use Types Packs/Day Years Used Date Smoking Tobacco: Never Assessed Comments Unknown Sex and Gender Information Value Date Recorded Sex Assigned at Not on file Legal Sex Female 4:43 PM EDT Gender Identity Not on file Sexual Orientation Not on file Plan of Treatment Health Maintenance Due Date Last Done Comments DTaP,Tdap,and Td Vaccines (6 - Tdap) 08/30/2002 08/29/2002, 07/26/1995, 11/15/1993, Additional history exists Varicella Vaccines (1 of 2 - 13+ 2-dose series) 2004 Consider Men B Vaccine (1 of 2 - Bexsero 2-dose series) 2007 HPV Vaccines (2 - 3-dose series) 05/06/2007 04/08/2007 Influenza Vaccines (#1) 2024 COVID-19 Vaccine ( - season) 2024 HIB Vaccines Completed 08/28/1992, 01/1992, 1991, Additional history exists IPV Vaccines Completed 07/26/1995, 10/28, 1991, Additional history exists MMR Vaccines Completed 03/07/1996, 08/28/1992 Hepatitis B Vaccines Completed 11/28/2002, 08/29/2002, 05/13/2002 Meningococcal Vaccine Completed 04/08/2007 Hepatitis A Vaccines Aged Out No long er eligible based on patient's age to complete this topic Men B Vaccine Aged Out No longer elig ible based on patient's age to complete this topic Pneumococcal Vaccine Aged Out No long er eligible based on patient's age to complete this topic Care Teams Sidehand Relationship Specialty Start Date End Date Daniel Deleon [address] [place] [address] PCP - General 02/06/17
== END 2024-09-01 15:59 | disposition home or self-care (01) ==
PROVIDERS: PCP Internal Medicine; Visit Provider Physician Assistant
DX: Z00.00 Encounter for general adult medical examination without abnormal findings (principal); J30.9 Allergic rhinitis, unspecified; L70.0 Acne vulgaris; R10.9 Unspecified abdominal pain

== ENCOUNTER → 2024-09-01 15:14 | Outpatient (BNVA) | payer OTHER, SELFPAY | PROVIDERS: PCP Internal Medicine; Visit Provider Physician Assistant | DX: Z00.00 Encounter for general adult medical examination without abnormal findings (principal); J30.9 Allergic rhinitis, unspecified; L70.0 Acne vulgaris; R10.9 Unspecified abdominal pain | CPT/HCPCS: 96127; 99395 ==

== ENCOUNTER 2024-09-07 11:35 | Outpatient (REF) | payer OTHER, SELFPAY ==
[2024-09-07 12:08] LABS: Hematocrit 39.9 % (37.0-47.0); Hemoglobin 13.4 g/dl (12.0-16.0); Mean Corpuscular HGB Conc 33.6 g/dl (31.0-35.0); Mean Corpuscular Hemoglobin 30.3 pg (27.0-33.0); Mean Corpuscular Volume 90.3 fL (80.0-98.0); Mean Platelet Volume 9.5 fL (9.4-12.3); Platelet Count 290 X10*3/uL (160-400); Red Blood Count 4.42 X10*6/uL (4.20-5.50); Red Cell Distribution Width 12.5 % (11.0-16.0); White Blood Count 6.2 X10*3/uL (4.8-10.8)
[2024-09-07 12:33] LABS: Appearance Urine Cloudy; Color Urine Yellow; Glucose Urine UA Negative (Negative); Leukocyte Esterase Urine Moderate (2+) (Negative); Nitrite Urine Negative (Negative); PH 7.5 (5.0-9.0); Specific Gravity - Urine 1.025 (1.005-1.025); UMIC TRIGGER UACC YES; Urine Blood Negative (Negative); Urine Ketones Negative (Negative); Urine Protein Trace mg/dL (Neg-Trace)
[2024-09-07 12:38] LABS: Bacteria Urine 4+ (None Seen); Hyaline Casts Urine 0-2 /LPF (0-2); RBC Urine 0-2 /HPF (0-2); UACC Culture Trigger YES; WBC Urine 21-50 /HPF (0-5)
[2024-09-07 13:01] LABS: Alanine Aminotransferase 34 U/L (0-31); Albumin Level 4.5 g/dL (3.5-5.0); Alkaline Phosphatase 90 U/L (39-117); Anion Gap 10 (12-20); Aspartate Amino Transferase 21 U/L (5-31); Blood Urea Nitrogen 7 mg/dL (9-16); Calcium 9.6 mg/dL (8.4-10.2); Carbon Dioxide 27 mmol/L (22-29); Chloride 107 mmol/L (96-108); Estimated Glomerular Filt Rate > 60; Glucose Fasting 81 mg/dL (60-99); Potassium 4.1 mmol/L (3.3-5.1); Sodium 140 mmol/L (135-145); Total Protein 8.2 g/dL (6.5-8.0)
[2024-09-07 13:11] LABS: Syphilis Screen Nonreactive (Nonreactive)
[2024-09-07 13:14] LABS: HBS Num1 7.55 mIU/mL (0-7.99); HBc Num1 0.06 S/CO (0.00-0.79); HBsAGNum1 0.25 S/CO (0.00-0.99); HIV AB/AG Nonreactive (Nonreactive); HIV Num 1 0.05 S/CO (0.00-0.99); Hepatitis B Core Antibody Nonreactive (Nonreactive); Hepatitis B Surface Antigen Negative (Negative); ~HepC Num1 0.07 S/CO (0.00-0.79); ~Hepatitis B Surface Antibody NONREACTIVE (Nonreactive); ~Hepatitis C Antibody Nonreactive (Nonreactive)
--- OUTSIDE RECORDS SUMMARY | 2024-09-07 13:43 | XMS_ITS | Clinical Summary ---
Author Organization [facility] Address [address] [facility] [address] [place] [address] Care Team Providers Care Freight Handler Name Role Phone Unavailable Primary Care Provider [...] patient's age to complete this topic Insurance [facility]CO
[2024-09-07 13:53] LABS: CT PCR NOT DETECTED (Not Detect.); NG PCR NOT DETECTED (Not Detect.)
[2024-09-13 08:48] LABS: Class Alternaria alternata 0; Class Aspergillus fumigatus 0; Class Bermuda Grass 0; Class Birch 0; Class Cat Dander 6; Class Cladosporium herbarum 0; Class Cockroach 3; Class Common Ragweed 2; Class Cottonwood 0; Class Derm. pterony 3; Class Dermatophagoides farinae 3; Class Dog Dander 3; Class Elm 0; Class Maple Box Elder 0; Class Mountain Cedar 0; Class Mouse Urine Protein 3; Class Mugwort 0/1; Class Oak 0; Class Penicillium crysogenum 0; Class Rough Pigweed 0; Class Sheep Sorrel 0; Class Sycamore 0; Class Timothy Grass 0/1; Class Walnut Tree 0; Class White Ash 0; Class White Mulberry 0; D001 IgE D pteronyssinus 8.12 kU/L; E001 - IgE Cat Dander >100 kU/L; E005 - IgE Dog Dander 4.35 kU/L; E072-IgE Mouse Urine 5.84 kU/L; G002 IgE Bermuda Grass <0.10 kU/L; G006 - IgE Timothy Grass 0.29 kU/L; I006-IgE Cockroach, German 3.89 kU/L; Immunoglobulin E 606 kU/L (<OR=114); M001 IgE Penicillium chrysogen <0.10 kU/L; M002 - IgE Cladosporium herbar <0.10 kU/L; M003 - IgE Aspergillus fumigat <0.10 kU/L; M006 - IgE Alternaria alternat <0.10 kU/L; T001 IgE Maple/Box Elder <0.10 kU/L; T003 IgE Common Silver Birch <0.10 kU/L; T006 - IgE Cedar, Mountain <0.10 kU/L; T007 - IgE Oak, White <0.10 kU/L; T008 IgE Elm, American <0.10 kU/L; T010 - IgE Walnut <0.10 kU/L; T011 - IgE Maple Leaf Sycamore <0.10 kU/L; T014 - IgE Cottonwood <0.10 kU/L; T015 - IgE Ash, White <0.10 kU/L; T070 - IgE White Mulberry <0.10 kU/L; W001 - IgE Ragweed, Short 2.18 kU/L; W006 - IgE Mugwort 0.22 kU/L; W014 IgE Pigweed, Common <0.10 kU/L; W018 IgE Sheep Sorrel <0.10 kU/L
== END 2024-09-07 11:36 | disposition home or self-care (01) ==
LOC: HO.LAB 11:35
PROVIDERS: PCP Internal Medicine; Visit Provider Physician Assistant
DX: Z20.2 Contact with and (suspected) exposure to infections with a predominantly sexual mode of transmission (principal); Z13.1 Encounter for screening for diabetes mellitus; R05.9 Cough, unspecified; J30.9 Allergic rhinitis, unspecified; Z11.3 Encounter for screening for infections with a predominantly sexual mode of transmission; R74.01 Elevation of levels of liver transaminase levels; R74.8 Abnormal levels of other serum enzymes
CPT/HCPCS: 80053; 81001; 82306; 82785; 85027; 86003; 86704; 86706; 86780; 86803; 87086; 87147; 87340; 87389; 87491; 87591

== ENCOUNTER 2025-03-08 13:41 | Outpatient (AMB) | payer OTHER, SELFPAY ==
--- NOTE | 2025-03-08 13:53 | AM.OFFVISNUR ---
Intake Visit Reasons: PPD PLant Allergies No Known Allergies (No Known Allergies*) Allergy (Verified 09/01/24 15:25) Office Meds tuberculin PPD 5 tub. unit/0.1 mL intradermal injection solution Performing Provider: Pily Hernandez MD Performing Location: [facility] [place] [facility] Administered by: Corrina Hart LPN on 03/08/25 13:50 Dose Route Admin Location Dispensed Lot Number Expiration Date [facility] [place]NOTE 2[place] Power House Control Room Operator 0.1 mL intradermal left forearm 0.1 mL [id number] 08/26/27 06675-151-19 [employer] Total Dispensed Waste 0.1 mL 0 % Assessment & Plan Assessment & Plan Orders: Orders AMB PPD Planted Today Z11.1 - Encounter for screening for respiratory tuberculosis Coding
--- OUTSIDE RECORDS SUMMARY | 2025-03-08 16:46 | XMS_ITS | Encounter Summary ---
Author Organization [facility] Address [address] [place] [address] Phone Care Team Providers Care Skeins Yarn Examiner Name Role Phone Daniel Deleon Primary Care Provider [phone] Encounter Details Date Type Department Care Team (Late st Contact Info) Description 02/12/2017 Conversion Encounter [facility] [address] [place] [address] Social History Tobacco Use Types Packs/Day Years [...] on filedocumented in this encounter Care Teams Skeins Yarn Examiner Relationship Specialty Start Date End Date Daniel Deleon [address] [place] [address] PCP - General 02/06/17 documented as of this encounter
--- OUTSIDE RECORDS SUMMARY | 2025-03-08 16:46 | XMS_ITS | Clinical Summary ---
Author Organization [facility] Address [address] [place] [address] Phone Care Team Providers Care Psychiatrist Name Role Phone Daniel Deleon Primary Care Provider [phone] Immunizations Immunization Administration Dates Next Due DTP [...] of Elevated cholesterol, Family history of Sudden /ND under age 55 Sister Alive Sister: Alive [...] of 2 - 13+ 2-dose series) 2004 HPV Vaccines (2 - 3-dose series) 05/06/2007 04/08/2007 Influenza Vaccines (#1) 2025 COVID-19 Vaccine ( season) 2025 HIB Vaccines Completed 08/28/1992, 01/1992, 1991, Additional [...] age to complete this topic Care Teams Psychiatrist Relationship Specialty Start Date End Date Daniel Deleon [address] [place] [id number] PCP - General 02/06/17
--- OUTSIDE RECORDS SUMMARY | 2025-03-08 16:46 | XMS_ITS | Clinical Summary ---
Author Organization [employer] Address [address] [facility] [address] [place] [address] Care Team Providers Care Cable Spooler Name Role Phone Unavailable Primary Care Provider [...] 1991 HIV Screening 1991 SDOH Screening 1991 Disability Screening 1991 Alcohol/Substance Use Screening 2003 Tobacco Screening 2003 Family Planning (PISQ) 2006 HPV Vaccines (2 - 3-dose series) 05/06/2007 04/08/2007 Hepatitis C Screening 2009 Pap Smear 2012 Cervical Cancer Screening 2021 HPV/Cotest 2021 COVID-19 Vaccine ( season) 2025 11/27/2021, 05/15/2021, 04/24/2021 Influenza Vaccine (#1) 2025 9, 04/14/2018, 04/05/2017, Additional history exists DTaP/Tdap/Td [...] on patient's age to complete this topic Meningococcal B Vaccine Aged Out No l onger eligible based on patient's age to complete this topic Pneumococcal Vaccine: Pediatrics (0 to 5 Years) and At-Risk Patients (6 to 49) Years Aged Out No longer eligible based on patient's age to complete this topic RSV under 20 months Aged Out No longe r eligible based on patient's age to complete this topic Rotavirus Vaccines Aged Out No longer eligible based on patient's age to complete this topic Insurance [facility] ([facility]
--- OUTSIDE RECORDS SUMMARY | 2025-03-08 16:46 | XMS_ITS | Encounter Summary ---
Author Organization [facility] Address [address] [place] [address] Phone Care Team Providers Care Tile And Marble Setter Name Role Phone Daniel Deleon Primary Care Provider [phone] Encounter Details Date Type Department Care Team (Late st Contact Info) Description 07/05/2012 Documentation [facility] [place] Family Medicine [address] [place] [address] Family Medicine, Physician [address], [place] [id number] Social History Tobacco Use Types Packs/Day Years [...] on filedocumented in this encounter Care Teams Tile And Marble Setter Relationship Specialty Start Date End Date Daniel Deleon [address] [place] [address] PCP - General 02/06/17 documented as of this encounter
== END 2025-03-08 13:54 | disposition home or self-care (01) ==
LOC: HO.HMCH 13:41
PROVIDERS: PCP Internal Medicine; Visit Provider Internal Medicine
DX: Z11.1 Encounter for screening for respiratory tuberculosis (principal)

== ENCOUNTER → 2025-03-08 13:41 | Outpatient (BNVA) | payer OTHER, SELFPAY | PROVIDERS: PCP Internal Medicine; Visit Provider Internal Medicine | DX: Z11.1 Encounter for screening for respiratory tuberculosis (principal) | CPT/HCPCS: 86580 ==

== ENCOUNTER 2025-03-27 15:45 | Outpatient (REF) | payer OTHER, SELFPAY ==
[2025-03-28 05:24] LABS: CT PCR NOT DETECTED (Not Detect.); NG PCR NOT DETECTED (Not Detect.)
== END 2025-03-27 15:46 | disposition home or self-care (01) ==
LOC: HO.LNP 15:45
PROVIDERS: PCP Internal Medicine; Visit Provider Obstetrics & Gynecology
DX: Z01.419 Encounter for gynecological examination (general) (routine) without abnormal findings (principal); O26.851 Spotting complicating pregnancy, first trimester; O20.9 Hemorrhage in early pregnancy, unspecified; Z3A.01 Less than 8 weeks gestation of pregnancy; Z20.2 Contact with and (suspected) exposure to infections with a predominantly sexual mode of transmission
CPT/HCPCS: 87491; 87591; 99212

== ENCOUNTER 2025-03-27 15:45 | Outpatient (AMB) | payer OTHER, SELFPAY ==
[2025-03-27 15:48] VITALS: BP 102/72; BMI 31.8
--- NOTE | 2025-03-27 15:48 | MHC.OFFVIS ---
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 No complaints. Last Pap/HPV was negative in 02/16 [facility] Medical History Physical exam Immunization due Surgical History No history of previous surgery Family History Mother High blood pressure High cholesterol Father No problems noted. Brother Heart attack, Onset Age: 31 High cholesterol High blood pressure Social History Household Members: Children Housing: Apartment Alcohol intake: current Patient Tobacco Use Status: Former Tobacco user Tobacco use type: Cigarette e-Cigarette/Vaping Use: Never Used Second Hand Smoke Exposure: No service: No Current occupational status: employed Current occupation: [employer] Current occupational exposures/hazards: No Sexually active: Yes Sexual orientation: Straight/Heterosexual Gender identity: Female Cognitive needs: No Hearing needs: No Vision needs: No Female Reproductive History Menstrual Age of Menarche: 13 Duration of menses: 3-5 days Date of last menstrual period: 01/11/25 (LMP approximate) control method: none Total pregnancies: 2 Full term: 1 History of abnormal pap smear: No Review of Systems Const All systems reviewed & are unremarkable except as noted in HPI and below Card Reports as per HPI Resp Reports as per HPI GI Reports as per HPI and Reports no additional complaints Reports as per HPI Physical Exam Vital Signs: Last Vital Signs BP 102/72 03/27/25 15:48 BMI result Body Mass Index 31.8 Const General: cooperative, healthy appearing and comfortable Chest Chest palpation & inspection: normal inspection of the chest and normal palpation of entire chest wall Breast/axilla inspection: normal inspection of the breasts and normal inspection of the axillae Breast/axilla palpation: normal palpation of the breasts, normal palpation of the axillae and no axillary lymphadenopathy Resp Effort & Inspection: normal respiratory effort Auscultation: clear to auscultation bilaterally Percussion: percussion normal Cardio Palpation: normal PMI Rate: regular rate Rhythm: regular rhythm Heart sounds: no murmurs and no rubs Peripheral pulses: Peripheral pulses 2+ throughout GI Inspection: Yes normal to inspection Palpation (GI): Soft to palpation, nontender, no guarding, not rigid and No hepatosplenomegaly present Percussion: Yes normal to percussion Auscultation: normal bowel sounds Rectal Exam - Female: deferred General: Yes bladder normal to palpation External Female Exam: No lesion Speculum Exam - Vagina: normal appearance of the vagina, normal palpation, normal vaginal discharge and not erythematous Speculum Exam - Cervix: normal appearance of the cervix and normal palpation Bimanual exam- vagina & uterus: normal bimanual exam, normal palpation, uterine size normal, bladder normal to palpation, consistency normal and normal palpation Bimanual Exam- Adnexa, other: normal adnexae, no masses and no tenderness Assessment & Plan Assessment & Plan (1) Encounter for well woman exam: Code(s): Z01.419 - Encounter for gynecological examination (general) (routine) without abnormal findings Category: Medical Plan: Cotesting done. Counseled the patient about the recommended dietary allowance of 1000 mg of Calcium & 600 IU of vitamin D. The patient was instructed to perform monthly self-breast exams and to schedule an annual exam in a year; All questions answered and the patient verbalized understanding. Instructed the patient to schedule annual exam in a year Coding Level of Care Code Est Pt Prev Care 18-39y(90761) Diagnoses Encounter for well woman exam Z01.419
--- NOTE | 2025-03-27 16:13 | A.OFFVIS_ITS ---
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 - [employer] Current occupational exposures/hazards: No Sexually active: Yes Sexual orientation: Straight/Heterosexual Gender identity: Female Cognitive needs: No Hearing needs: No Vision needs: No Female Reproductive History Menstrual Age of Menarche: 13 Review of Systems Const All systems reviewed & are unremarkable except as noted in HPI and below Physical Exam Vital Signs: Last Vital Signs BP 102/72 03/27/25 15:48 BMI result Body Mass Index 31.8 General: Yes no CVA tenderness External Female Exam: normal external appearance and normal appearance of the urethra Speculum Exam - Vagina: normal appearance of the vagina, normal palpation, no lesions and no masses Speculum Exam - Cervix: normal appearance of the cervix, normal palpation, no lesions, no masses and nontender Bimanual exam- vagina & uterus: normal bimanual exam, normal palpation, uterine size normal, normal palpation, uterine shape normal, No Cervical tenderness present and non-tender Bimanual Exam- Adnexa, other: normal adnexae Back/Spine/Pelvis Back: no CVA tenderness Assessment & Plan Assessment & Plan (1) Spotting in first trimester: Code(s): O26.851 - Spotting complicating , first trimester Category: Medical Plan: GC/CT done. OB ultrasound stat ordered Instructions given the patient to call or go to emergency room in case of pelvic pain and or bleeding and to schedule a follow-up appointment. vitamin tablet p.o. q.d. All questions answered, the patient verbalized understanding Orders: Orders US OB <= 14 weeks fetus Today O20.9 - Hemorrhage in early , unspecified CT NG by PCR Vag/Cerv Today Z01.419 - Encounter for gynecological examination (general) (routine) without abnormal findings Medications: New no.144-folic acid 400 mcg 1 tab PO DAILY 180 tabs 1RF 180 days Coding Level of Care Code Est Pt Level 3 (56062) Diagnoses Spotting in first trimester O26.851
--- OUTSIDE RECORDS SUMMARY | 2025-03-27 17:47 | XMS_ITS | Encounter Summary ---
Author Organization [facility] Address [address] [place] [address] Phone Care Team Providers Care Colon Therapist Name Role Phone Daniel Deleon Primary Care Provider [phone] Encounter Details Date Type Department Care Team (Late st Contact Info) Description 02/12/2017 Conversion Encounter [facility] [address] [place] [address] Social History Tobacco Use Types Packs/Day Years [...] on filedocumented in this encounter Care Teams Colon Therapist Relationship Specialty Start Date End Date Daniel Deleon [address] [place] [address] PCP - General 02/06/17 documented as of this encounter
--- OUTSIDE RECORDS SUMMARY | 2025-03-27 17:47 | XMS_ITS | Clinical Summary ---
Author Organization [employer] Address [address] [facility] 7t [place] [address] Care Team Providers Care Technical Documentation Specialist Name Role Phone Unavailable Primary Care Provider [...] patient's age to complete this topic Insurance [facility])
--- OUTSIDE RECORDS SUMMARY | 2025-03-27 17:47 | XMS_ITS | Clinical Summary ---
Author Organization [facility] Address [address] [place] [address] Phone Care Team Providers Care Manager Shell Name Role Phone Daniel Deleon Primary Care Provider [phone] Immunizations Immunization Administration Dates Next Due DTP [...] of Elevated cholesterol, Family history of Sudden /ID under age 55 Sister Alive Sister: Alive [...] age to complete this topic Care Teams Manager Shell Relationship Specialty Start Date End Date Daniel Deleon [address] [place] [address] PCP - General 02/06/17
--- OUTSIDE RECORDS SUMMARY | 2025-03-27 17:47 | XMS_ITS | Encounter Summary ---
Author Organization [facility] Address [address] [place] [address] Phone Care Team Providers Care Coat Hanger Shaper Machine Operator Name Role Phone Daniel Deleon Primary Care Provider [phone] Encounter Details Date Type Department Care Team (Late st Contact Info) Description 07/05/2012 Documentation [facility] [place] Family Medicine [address] [place] [address] Family Medicine, Physician [address] [place], [place] [address] Social History Tobacco Use Types Packs/Day Years [...] on filedocumented in this encounter Care Teams Coat Hanger Shaper Machine Operator Relationship Specialty Start Date End Date Daniel Deleon [address] [place] [address] PCP - General 02/06/17 documented as of this encounter
== END 2025-03-27 16:19 | disposition home or self-care (01) ==
PROVIDERS: PCP Internal Medicine; Visit Provider Obstetrics & Gynecology
DX: O26.851 Spotting complicating pregnancy, first trimester (principal)
CPT/HCPCS: 99213

== ENCOUNTER 2025-03-28 09:37 | Outpatient (REF) | payer OTHER, SELFPAY ==
--- NOTE | ~2025-03-28 | US_ITS ---
EXAMINATION: US OBSTETRICAL ULTRASOUND CLINICAL INFORMATION: Spotting, early . COMPARISON: None relevant. LMP: December 2024. Gestational age by maternal dates is approximately 8 weeks by estimate. TECHNIQUE: Ultrasound of the maternal pelvis is performed using transabdominal and transvaginal transducers. Transvaginal imaging is performed due to inadequate visualization transabdominally. M-mode Doppler is also performed. FINDINGS: There is no evidence of gestational sac within the endometrium. The endometrial stripe measures 1.8 cm, without decidual reaction present. The endometrium appears somewhat sonographically heterogeneous. There is a trace amount of anechoic fluid within the cervix, nonspecific. Cervix otherwise images normally. Myometrium has a normal appearance. There is no focal fibroid. MATERNAL ADNEXA: The right maternal ovary measures 3.9 x 2.1 x 2.4 cm. There is a corpus luteal cyst measuring 1.7 x 1.5 x 1.9 cm. There is an abutting oval right adnexal echogenic mass with some surrounding increased vascularity, measuring 2.7 x 1.8 x 2.0 cm, highly suspicious for ectopic . There is trace anechoic free fluid abutting the left adnexal structures. The left maternal ovary measures 2.0 x 1.4 x 1.8 cm. Normal sonographic appearance. There is a left hydrosalpinx incidentally noted. US/US OB pelvic and transvaginal IMPRESSION: 1. Findings highly suspicious for a right adnexal ectopic as discussed. There is a trace amount of right adnexal anechoic free fluid. There is no complex ascites present. 2. Thickened and heterogeneous endometrium without definite gestational sac present. 3. Left-sided hydrosalpinx incidentally noted. Left ovary is normal. Findings were discussed via phone call by the technologist Payal Page to JONNY Clayton in Dr. Meza's office at 10:21 AM, 03/28/2025. Electronically signed by: Sanju Wilson MD 03/28/2025 10:46 AM EDT
--- OUTSIDE RECORDS SUMMARY | 2025-03-28 10:28 | XMS_ITS | Encounter Summary ---
Author Organization [facility] Address [address] [place] [address] Phone Care Team Providers Care Wind Energy Project Manager Name Role Phone Daniel Deleon Primary Care Provider [phone] Encounter Details Date Type Department Care Team (Late st Contact Info) Description 02/12/2017 Conversion Encounter [facility] [address] [place] [address] Social History Tobacco Use Types Packs/Day Years [...] on filedocumented in this encounter Care Teams Wind Energy Project Manager Relationship Specialty Start Date End Date Daniel Deleon [address] [place] [address] PCP - General 02/06/17 documented as of this encounter
--- OUTSIDE RECORDS SUMMARY | 2025-03-28 10:28 | XMS_ITS | Clinical Summary ---
Author Organization [facility] Address [address] [place] [address] Phone Care Team Providers Care Cq Developer Name Role Phone Daniel Deleon Primary Care Provider [phone] Immunizations Immunization Administration Dates Next Due DTP [...] of Elevated cholesterol, Family history of Sudden /[place] under age 55 Sister Alive Sister: Alive [...] age to complete this topic Care Teams Cq Developer Relationship Specialty Start Date End Date Daniel Deleon [address] [place] [address] PCP - General 02/06/17
--- OUTSIDE RECORDS SUMMARY | 2025-03-28 10:28 | XMS_ITS | Clinical Summary ---
Author Organization [employer] Address [address] [facility] 7t [place] [address] Care Team Providers Care Acute Dialysis Registered Nurse Name Role Phone Unavailable Primary Care Provider [...] patient's age to complete this topic Insurance [facility] ([facility])
--- OUTSIDE RECORDS SUMMARY | 2025-03-28 10:28 | XMS_ITS | Encounter Summary ---
Author Organization [facility] Address [address] [place] [address] Phone Care Team Providers Care Wrapping Machine Tender Name Role Phone Daniel Deleon Primary Care Provider [phone] Encounter Details Date Type Department Care Team (Late st Contact Info) Description 07/05/2012 Documentation [facility] [place] Family Medicine [address] [place] [address] Family Medicine, Physician [address], [place] [address] Social History Tobacco Use Types Packs/Day Years [...] on filedocumented in this encounter Care Teams Wrapping Machine Tender Relationship Specialty Start Date End Date Daniel Deleon [address] [place] [address] PCP - General 02/06/17 documented as of this encounter
== END 2025-03-28 09:38 | disposition home or self-care (01) ==
LOC: HO.US 09:37
PROVIDERS: PCP Internal Medicine; Visit Provider Obstetrics & Gynecology
DX: O00.90 Unspecified ectopic pregnancy without intrauterine pregnancy (principal)
CPT/HCPCS: 76801; 76817; 99212

== ENCOUNTER → 2025-03-28 09:40 | Outpatient (BNV) | payer OTHER, SELFPAY | PROVIDERS: PCP Internal Medicine; Visit Provider Radiology Diagnostic Radiology | DX: O26.851 Spotting complicating pregnancy, first trimester (principal); O26.891 Other specified pregnancy related conditions, first trimester; R93.89 Abnormal findings on diagnostic imaging of other specified body structures | CPT/HCPCS: 76801; 76817 ==

== ENCOUNTER 2025-03-28 10:26 | Outpatient (AMB) | payer OTHER, SELFPAY ==
--- NOTE | 2025-03-28 10:28 | MHC.OFFVIS ---
Vital Signs 03/28/25 10:30 Height 5 ft Weight 163 lb BMI 31.8 BP 100/62 Intake Visit Reasons: ultrasound results Consulting Marine Engineer Required: No Information Interpreted: non-clinical & clinical Accompanied by: Spouse Allergies No Known Allergies (No Known Allergies*) Allergy (Verified 03/28/25 10:31) Patient : Yes HPI Comments Details: Presenting for follow-up ultrasound which showed the following: The right maternal ovary measures 3.9 x 2.1 x 2.4 cm. There is a corpus luteal cyst measuring 1.7 x 1.5 x 1.9 cm. There is an abutting oval right adnexal echogenic mass with some surrounding increased vascularity, measuring 2.7 x 1.8 x 2.0 cm, highly suspicious for ectopic . There is trace anechoic free fluid abutting the left adnexal structures. The left maternal ovary measures 2.0 x 1.4 x 1.8 cm. Normal sonographic appearance. There is a left hydrosalpinx incidentally noted. US/US OB pelvic and transvaginal IMPRESSION: 1. Findings highly suspicious for a right adnexal ectopic as discussed. There is a trace amount of right adnexal anechoic free fluid. There is no complex ascites present. 2. Thickened and heterogeneous endometrium without definite gestational sac present. 3. Left-sided hydrosalpinx incidentally noted. Left ovary is normal. [facility] Medical History Physical exam Immunization due Surgical History No history of previous surgery Family History Mother High blood pressure High cholesterol Father No problems noted. 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 The patient was instructed to go to woman evaluation triage unit at [facility] immediately without any delay for further management. Discussed the case with Rosie Evans CNM inspector assemblies and installations and ultrasound report was given to the patient. All questions answered, the patient verbalized understanding especially the urgency of her clinical situation and agreed with the plan. Coding Level of Care Code Est Pt Level 3 (54559) Diagnoses Ectopic O00.90
[2025-03-28 10:30] VITALS: BP 100/62; BMI 31.8
== END 2025-03-28 10:54 | disposition home or self-care (01) ==
LOC: HO.HWS 10:26
PROVIDERS: PCP Internal Medicine; Visit Provider Obstetrics & Gynecology
DX: O00.90 Unspecified ectopic pregnancy without intrauterine pregnancy (principal)
CPT/HCPCS: 99213

== ENCOUNTER 2025-06-13 11:04 | Outpatient (AMB) | payer OTHER, SELFPAY ==
--- NOTE | 2025-06-13 11:20 | AM.OFFVISNUR ---
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 unit/0.1 mL intradermal injection solution Performing Provider: Pily Hernandez MD [facility] [place] [facility] Administered by: Corrina Hart LPN on 06/13/25 11:21 Dose Route Admin Location Dispensed Lot Number Expiration Date [facility] Welfare Case Worker 0.1 mL intradermal left forearm 0.1 mL [id number] 08/26/26 63990-706-01 [employer] Total Dispensed Waste 0.1 mL 0 % Assessment & Plan Assessment & Plan Orders: Orders AMB PPD Planted Today Z11.1 - Encounter for screening for respiratory tuberculosis Coding
--- OUTSIDE RECORDS SUMMARY | 2025-06-13 14:35 | XMS_ITS | Encounter Summary ---
Author Organization [facility] Address [address] [place] [address] Phone Care Team Providers Care Underwriter Name Role Phone Daniel Deleon Primary Care Provider [phone] Encounter Details Date Type Department Care Team (Late st Contact Info) Description 02/12/2017 Conversion Encounter [place] [facility] [address] [place] [address] Social History Tobacco Use Types Packs/Day Years [...] on filedocumented in this encounter Care Teams Underwriter Relationship Specialty Start Date End Date Daniel Deleon [address] [place] [address] PCP - General 02/06/17 documented as of this encounter
--- OUTSIDE RECORDS SUMMARY | 2025-06-13 14:35 | XMS_ITS | Encounter Summary ---
Author Organization [facility] Address [address] [place] [id number] Phone Care Team Providers Care High Lead Yarder Name Role Phone Daniel Deleon Primary Care Provider [phone] Encounter Details Date Type Department Care Team (Late st Contact Info) Description 07/05/2012 Documentation [facility] [place] [facility] [address] [place] [address] Family Medicine, Physician [address], [place] [id number] Social History Tobacco Use Types Packs/Day Years [...] on filedocumented in this encounter Care Teams High Lead Yarder Relationship Specialty Start Date End Date Daniel Deleon [address] [place] [address] PCP - General 02/06/17 documented as of this encounter
--- OUTSIDE RECORDS SUMMARY | 2025-06-13 14:35 | XMS_ITS | Clinical Summary ---
Author Organization [employer] Address [address] [facility] [address] [place] [address] Care Team Providers Care Plant Facilities Technician Name Role Phone Unavailable Primary Care Provider [...] patient's age to complete this topic Insurance [facility] ([facility])
--- OUTSIDE RECORDS SUMMARY | 2025-06-13 14:35 | XMS_ITS | Clinical Summary ---
Author Organization [facility] Address [address] [place] [id number] Phone Care Team Providers Care Switch Operators Supervisor Name Role Phone Daniel Deleon Primary Care Provider [phone] Immunizations Immunization Administration Dates Next Due DTP [...] age to complete this topic Care Teams Switch Operators Supervisor Relationship Specialty Start Date End Date Daniel Deleon [address] [place] [id number] PCP - General 02/06/17
== END 2025-06-13 11:21 | disposition home or self-care (01) ==
LOC: HO.HMCH 11:05
PROVIDERS: PCP Internal Medicine; Visit Provider Internal Medicine
DX: Z11.1 Encounter for screening for respiratory tuberculosis (principal)

== ENCOUNTER → 2025-06-13 11:04 | Outpatient (BNVA) | payer OTHER, SELFPAY | PROVIDERS: PCP Internal Medicine; Visit Provider Internal Medicine | DX: Z11.1 Encounter for screening for respiratory tuberculosis (principal) | CPT/HCPCS: 86580 ==